=== PATIENT | male | born 1975 | race Caucasian/White ===

== ENCOUNTER 2019-06-07 08:02 | Emergency (ER) | payer OTHER ==
[2019-06-07] MEDS ORDERED: traMADol TAB* 50 MG PO ONE (10:59)
--- NOTE | 2019-06-07 11:04 | UC ---
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 OVER THE PAST COUPLE OF WEEKS HAS HAD A FLARE OF THE SYMPTOMS. PATIENT IS VISITING HERE IN [place] FOR FAMILY REUNION. LIVES IN [place]. SYMPTOMS WORSENED 4 DAYS AGO AFTER DRIVING HERE AND BEING ON HIS FEET ALL DAY AT THE REUNION. NO RECENT TRAUMA. NO SADDLE ANESTHESIA OR LOSS OF BOWEL OR BLADDER CONTROL. - History of Current Complaint Chief Complaint: UCBackPain Stated Complaint: BACK PAIN Time Seen by Provider: 06/07/19 09:31 Hx Obtained From: Patient, Family/After School Tutor Onset/Duration: Gradual Onset, Lasting Weeks, Still Present Severity Initially: Moderate Severity Currently: Moderate Pain Intensity: 6 Pain Scale Used: 0-10 Numeric Aggravating Factor(s): Other - SITTING Alleviating Factor(s): Nothing Able to Bear Weight: Yes - Allergies/Home Medications Allergies/Adverse Reactions: Allergies Allergy/AdvReac Type Severity Reaction Status Date / Time No Known Allergies Allergy Verified 06/07/19 08:17 Home Medications: Home Medications Cetirizine* [ZyrTEC 10 MG TAB*] 10 mg PO DAILY 06/07/19 [History Confirmed 06/07] FLUoxetine CAP* [Prozac CAP*] 40 mg PO DAILY 06/07/19 [History Confirmed ] traZODone TAB* [Desyrel TAB*] 25 mg PO BEDTIME 06/07/19 [History Confirmed 06/07] PMH/Surg Hx/FS Hx/Imm Hx Cardiovascular History: Hypertension Psychological History: Anxiety - Surgical History Surgical History: None - Family History Family History: BLOOD CLOTS - Social History Alcohol Use: Occasionally Substance Use Type: None Smoking Status (MU): Never Smoked Tobacco Review of Systems All Other Systems Reviewed And Are Negative: Yes Constitutional: Positive: Other - PAIN Respiratory: Positive: Negative Cardiovascular: Positive: Negative Gastrointestinal: Positive: Negative Neurological: Positive: Paresthesia, Numbness Physical Exam Triage Information Reviewed: Yes Appearance: Well-Nourished, Pain Distress - MOD/SEVERE Vital Signs: Initial Vital Signs Temp 98.5 F 06/07/19 08:18 Pulse 75 06/07/19 08:18 Resp 20 06/07/19 08:18 BP 155/111 06/07/19 08:18 Pulse Ox 98 06/07/19 08:18 Vital Signs Reviewed: Yes Eyes: Positive: Conjunctiva Clear ENT: Positive: Hearing grossly normal Neck: Positive: Supple Respiratory: Positive: No respiratory distress, No accessory muscle use Cardiovascular: Positive: Pulses Normal Abdomen Description: Positive: Soft Musculoskeletal: Positive: No Edema Neurological: Positive: Alert, Other: - POSITIVE STRAIGHT LEG RAISE RIGHT. LOSS OF PROPRIOCEPTION AND UNABLE TO DISTINGUISH SHARP/DULL RIGHT FOOT. Psychological: Positive: Age Appropriate Behavior Skin: Negative: Rashes Diagnostics - Radiology LUMBAR SACRAL XRAYS Radiology Interpretation Completed By: Radiologist Summary of Radiographic Findings: Mild L4-L5 and L5-S1 degenerative spondylosis and facet joint osteoarthritis Lower Extremity Course/Dx - Course Course Of Treatment: PATIENT WITH ACUTE ON CHRONIC RIGHT LOWER EXTREMITY PARESTHESIAS. SX CONSISTENT WIOTH LUMBAR RADICULOPATHY. RECOMMEND AN MRI. WILL TREAT SYMPTOMS WITH PREDNISONE, FLEXERIL, MELOXICAM AND TRAMADOL FOR BREAKTHROUGH. SYMPTOMS NOT CONSISTENT WITH CAUDA EQUINA. ADVISED TO GO TO ER WITHOUT FAIL IF HIS SYMPTOMS WORSEN. HE WILL FOLLOW-UP WITH [place] [facility] [place] WHEN HE RETUR[place] HOME TO [place]. DISCUSSED US GIVEN HIS FAM HX OF BLOOD CLOTS AND THE FACT THAT HIS PAIN GOT WORSE AFTER DRIVING 10 HOURS. PT DECLINES AT PRESENT. STATES HE WILL RETURN OR GO TO THE ER IF THE MEDS ARE NOT EFFECTIVE. - Differential Dx/Diagnosis Provider Diagnosis: Lumbar radiculopathy, right Discharge - Sign-Out/Discharge Documenting (check all that apply): Patient Departure All imaging exams completed and their final reports reviewed: Yes - Discharge Plan Condition: Stable Disposition: HOME Prescriptions: Cyclobenzaprine TAB* [Flexeril TAB*] 10 mg PO BID PRN #30 tab PRN Reason: Pain Meloxicam [Mobic] 7.5 mg PO BID PRN #30 tab PRN Reason: Pain predniSONE TAB* [Deltasone TAB*] 50 mg PO DAILY #5 tab traMADol TAB* [Ultram*] 50 mg PO Q6HR PRN #20 tab MDD 4 PRN Reason: Pain Patient Education Materials: Lumbar Radiculopathy (ED) Forms: *Gen. Provider Communication Referrals: No Primary Care Phys,NOPCP [Primary Care Provider] - Additional Instructions: X-RAY OF YOUR LUMBAR SACRAL SPINE SHOWED SOME DEGENERATIVE CHANGES BUT NOTHING ACUTE. YOUR SYMPTOMS ARE MORE CONSISTENT WITH LUMBAR RADICULOPATHY AND I THINK YOU WOULD BENEFIT FROM MORE ADVANCED IMAGING SUCH AN MRI. WILL TRY TREATING YOUR SYMPTOMS WITH PREDNISONE TO HELP WITH SWELLING AND INFLAMMATION, MELOXICAM FOR INFLAMMATION AND PAIN. FLEXERIL FOR MUSCLE RELAXER. USE THE TRAMADOL FOR BREAKTHROUGH PAIN. GO TO THE ER WITHOUT FAIL IF YOU DEVELOP INTOLERABLE PAIN, NUMBNESS TO THE GENITAL REGION OR ANY OTHER CONCERNING SYMPTOMS. - Billing Disposition and Condition Condition: STABLE Disposition: Home
== END 2019-06-07 11:27 | disposition home or self-care (01) ==
LOC: UCEAST 08:02
DX: M54.16 Radiculopathy, lumbar region (principal); I10 Essential (primary) hypertension; F41.9 Anxiety disorder, unspecified
CPT/HCPCS: 72110; 99202; A9270-GY; G0463